=== PATIENT | male | born 1970 | race Caucasian/White ===

== ENCOUNTER 2022-10-13 05:56 | Emergency (ER) | payer OTHER, SELFPAY ==
--- NOTE | 2022-10-13 06:20 | ED_ITS ---
HPI - General Adult General Time Seen by Provider: 06:21 Date Seen: 10/13/22 Chief complaint: Nausea/Vomiting Stated complaint: Nausea Time Seen by Provider: 10/13/22 05:58 Source: patient and RN notes reviewed Mode of arrival: ambulatory Limitations: no limitations History of Present Illness HPI narrative: 52-year-old medically complex patient with history of pancreas islet cell transplant, diabetes, cystic fibrosis hypertension who presents today with mellitus. Abrupt onset of feeling poorly about an hour ago with body aches, headache, nausea vomiting. Chronic nasal congestion. No cough or chest pain, chronic abdominal pain is unchanged from usual. No diarrhea. Patient has not taken any medication for his symptoms. History of recent kidney stones but no flank pain or urinary symptoms today. Related Data Home Medications Medication Instructions Recorded Confirmed acetylcysteine .ROUTE 10/13/22 albuterol sulfate .ROUTE 10/13/22 amlodipine 10 mg tablet 10 mg PO DAILY 10/13/22 10/13/22 azithromycin 250 mg tablet 250 mg PO DAILY 10/13/22 10/13/22 insulin aspart U-100 100 unit/mL 60 unit subcut DAILY 10/13/22 10/13/22 subcutaneous cartridge (Novolog PenFill U-100 Insulin aspart) [id number] PO 10/13/22 lisinopril 40 mg tablet 40 mg PO DAILY 10/13/22 10/13/22 medical cannabis 10/13/22 pregabalin 75 mg capsule (Lyrica) 75 mg PO DAILY 10/13/22 10/13/22 suvorexant 10 mg tablet (Belsomra) 10 mg PO QHS 10/13/22 10/13/22 tadalafil .ROUTE DAILY 10/13/22 trikafta 10/13/22 ursodiol 250 mg tablet 250 mg PO BID 10/13/22 10/13/22 venlafaxine 75 mg tablet 75 mg PO DAILY 10/13/22 10/13/22 Previous Rx's Medication Instructions Recorded levofloxacin 750 mg tablet 750 mg PO DAILY 7 days #7 tabs 10/13/22 ondansetron 4 mg disintegrating 4 mg PO Q6H PRN nausea and 10/13/22 tablet vomiting #20 tabs Allergies Allergy/AdvReac Type Severity Reaction Status Date / Time meropenem Allergy Mild Rash Verified 10/13/22 06:55 vancomycin Allergy Mild Rash Verified 10/13/22 06:55 Review of Systems Status of ROS: Reports: 10 or more systems reviewed and unremarkable except as noted in History and below Exam Narrative: Exam Narrative: General: Well-developed and well-nourished, no acute distress Head: Atraumatic and normocephalic Eyes: Pupils are equal reactive, extraocular motions intact, conjunctiva clear ENT: External nose and ears are normal, posterior pharynx without erythema or exudate Neck: No midline cervical tenderness, full spontaneous range of motion the neck, trachea midline, no adenopathy Heart: Regular rate and rhythm no murmurs or thrills Lungs: Clear to auscultation bilaterally without wheezes or crackles Abdomen: Soft, mild diffuse abdominal tenderness, nondistended with active bowel sounds Musculoskeletal: No tenderness, deformity, or edema Neurologic: Awake, alert, and oriented x3, no gross focal neurologic deficits, cranial nerves intact as tested Psych: Mood and affect are appropriate Skin: No rashes Const: Vital Signs, click to edit/add: Vital Signs - 24 hr 10/13/22 06:41 Temperature 99.0 F Pulse Rate [Right Pulse Oximeter] 89 Respiratory Rate 20 Blood Pressure [Ri ght Upper Arm] 166/110 H Pulse Oximetry 99 Oxygen Delivery Me thod Room Air Course Course Hospital Course: Patient seen and examined, prior records reviewed. Differential diagnosis includes but not limited to influenza, COVID, bowel obstruction, diverticulitis, cholecystitis, pneumonia. Patient presents with nausea, vomiting, headache, body aches, and will as starting 1 hour ago, abrupt onset. No focal findings on exam here, mild diffuse abdominal tenderness which patient says is chronic for him. Lungs are clear and patient has no cough. Recent kidney stone. Labs and chest x-ray ordered. Reevaluation(s) Reevaluation #1: Labs show normal white blood cell count, negative lactate. Urinalysis is negative, influenza and COVID swabs negative. Mild elevation in the AST and ALT of undetermined significance. Chest x-ray demonstrates right lung base opacity suspicious for pneumonia which is consistent with patient's symptoms. He will be started on antibiotics and discharged. 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 Will be given Rocephin in the emergency department. Time: 07:52 Reevaluation #2: On further consideration, given history of cystic fibrosis, Levaquin ordered instead of doxycycline. Patient is early in his course so Pseudomonas is unlikely but still concerned Time: 08:24 Vital Signs Vital signs: Initial Vital Signs Temperature 99.0 F 10/13/22 06:41 Temperature Source Temporal Artery Scan 10/13/22 06:41 Pulse Rate 89 10/13/22 06:41 Respiratory Rate 20 10/13/22 06:41 Blood Pressure 166/110 H 10/13/22 06:41 Blood Pressure Mean 128 10/13/22 06:41 Blood Pressure Position Sitting 10/13/22 06:41 Pulse Oximetry 99 10/13/22 06:41 Oxygen Delivery Method 10/13/22 06:41 Vital Signs Temperature 99.0 F 10/13/22 06:41 Pulse Rate 89 10/13/22 06:41 Respiratory Rate 20 10/13/22 06:41 Blood Pressure 166/110 H 10/13/22 06:41 Pulse Oximetry 99 10/13/22 06:41 Oxygen Delivery Method 10/13/22 06:41 Temperature 99.0 F 10/13/22 06:41 Pulse Rate 89 10/13/22 06:41 Respiratory Rate 20 10/13/22 06:41 Blood Pressure 166/110 H 10/13/22 06:41 Pulse Oximetry 99 10/13/22 06:41 Oxygen Delivery Method 10/13/22 06:41 Medical Decision Making Medical Records Medical records reviewed: Yes I reviewed the patient's medical records Lab Data Lab results reviewed: Yes I reviewed the patient's lab results Labs: Lab Results 10/13/22 10/13/22 10/13/22 Range/Units 06:24 06:24 06:56 WBC 9.30 (4.50-11.00) K/uL RBC 4.18 L (4.30-5.90) m/uL Hgb 13.3 L (13.5-17.5) gm/dL Hct 39.8 (37.0-53.0) % MCV 95 (80-100) fL MCH 32 (26-34) pg MCHC 33 (32-36) gm/dL RDW Coeff of [place] 14.3 (11.5-15.5) % Plt Count 353 (140-440) K/uL Neut % (Auto) 68.0 (42.0-72.0) % Lymph % (Auto) 16.1 L (20-44) % [place] % (Auto) 13.0 H (0.0-11.0) % Eos % (Auto) 1.3 (0.0-7.0) % Baso % (Auto) 1.0 (0.0-3.0) % Neut # (Auto) 6.32 (1.7-7.0) K/uL Lymph # (Auto) 1.50 (0.90-2.90) K/uL [place] # (Auto) 1.20 H (0.00-0.90) K/UL Eos # (Auto) 0.12 (0.00-0.50) K/uL Baso # (Auto) 0.09 (0.00-0.30) K/uL Sodium (135-149) mmol/L Potassium (3.6-5.1) mmol/L Chloride (96-114) mmol/L Carbon Dioxide (20-32) mmol/L BUN (7-30) mg/dL Creatinine (0.5-1.5) mg/dL Estimated Creat Clear Estimated GFR ml/min Glucose (60-115) mg/dL Lactate (0.5-1.9) mmol/L Calcium (8.4-10.6) mg/dL Total Bilirubin (0.1-1.5) mg/dL Direct Bilirubin (0.0-0.5) mg/dL AST (12-35) U/L ALT (4-50) U/L Alkaline Phosphatase (40-150) U/L Total Protein (6.0-8.3) g/dL Albumin (3.3-5.0) g/dL Urine Color Yellow (Yellow) Urine Appearance Clear (Clear) Urine pH 7.0 (5.0-8.5) Ur Specific [place] 1.025 (1.000-1.030) Urine Protein Negative (Negative) Urine Glucose (UA) Negative (Negative) Urine Ketones Negative (Negative) Urine Blood Negative (Negative) Urine Nitrite Negative (Negative) Urine Bilirubin Negative (Negative) Urine Urobilinogen 0.2 (0.2-1.0) Ur Leukocyte Esterase Negative (Negative) Urine RBC 0-2 (0-2) Urine WBC 0-2 (0-5) Ur Squamous Epith Cells Few (None-Few) Urine Bacteria None (None) SARS-CoV-2 (PCR) Negative SARS-CoV-2 (Negative) Influenza Type A (PCR) Negative PCR FLU A (Negative) Influenza Type B (PCR) Negative PCR FLU B (Negative) RSV (PCR) Negative PCR RSV (Negative) 10/13/22 10/13/22 Range/Units 06:56 06:56 WBC (4.50-11.00) K/uL RBC (4.30-5.90) m/uL Hgb (13.5-17.5) gm/dL Hct (37.0-53.0) % MCV (80-100) fL MCH (26-34) pg MCHC (32-36) gm/dL RDW Coeff of [place] (11.5-15.5) % Plt Count (140-440) K/uL Neut % (Auto) (42.0-72.0) % Lymph % (Auto) (20-44) % [place] % (Auto) (0.0-11.0) % Eos % (Auto) (0.0-7.0) % Baso % (Auto) (0.0-3.0) % Neut # (Auto) (1.7-7.0) K/uL Lymph # (Auto) (0.90-2.90) K/uL [place] # (Auto) (0.00-0.90) K/UL Eos # (Auto) (0.00-0.50) K/uL Baso # (Auto) (0.00-0.30) K/uL Sodium 138 (135-149) mmol/L Potassium 3.7 (3.6-5.1) mmol/L Chloride 105 (96-114) mmol/L Carbon Dioxide 26 (20-32) mmol/L BUN 11 (7-30) mg/dL Creatinine 0.6 (0.5-1.5) mg/dL Estimated Creat Clear 114.59 Estimated GFR 115 ml/min Glucose 228 H (60-115) mg/dL Lactate 1.5 (0.5-1.9) mmol/L Calcium 8.5 (8.4-10.6) mg/dL Total Bilirubin 0.5 (0.1-1.5) mg/dL Direct Bilirubin 0.2 (0.0-0.5) mg/dL AST 66 H (12-35) U/L ALT 61 H (4-50) U/L Alkaline Phosphatase 133 (40-150) U/L Total Protein 6.4 (6.0-8.3) g/dL Albumin 4.1 (3.3-5.0) g/dL Urine Color (Yellow) Urine Appearance (Clear) Urine pH (5.0-8.5) Ur Specific [place] (1.000-1.030) Urine Protein (Negative) Urine Glucose (UA) (Negative) Urine Ketones (Negative) Urine Blood (Negative) Urine Nitrite (Negative) Urine Bilirubin (Negative) Urine Urobilinogen (0.2-1.0) Ur Leukocyte Esterase (Negative) Urine RBC (0-2) Urine WBC (0-5) Ur Squamous Epith Cells (None-Few) Urine Bacteria (None) SARS-CoV-2 (PCR) (Negative) Influenza Type A (PCR) (Negative) Influenza Type B (PCR) (Negative) RSV (PCR) (Negative) Discharge Plan Discharge Clinical Impression: S/P pancreatic islet cell transplantation, Cystic fibrosis, RLL pneumonia Patient Disposition: Home, Self-Care Condition: Stable Instructions: Community Acquired Pneumonia (DC) Additional Instructions: Tylenol and ibuprofen as needed for fever. Take antibiotics as prescribed starting tomorrow morning (Levaquin and Ceftin). Stop taking your azithromycin while your taking the Ceftin and Levaquin. Activity Level: No Restrictions Discharge Diet: Regular Prescriptions: New ondansetron 4 mg tablet,disintegrating 4 mg PO Q6H PRN (Reason: nausea and vomiting) Qty: 20 0RF levofloxacin 750 mg tablet 750 mg PO DAILY 7 Days Qty: 7 0RF Rx Instructions: Discontinue prior doxycycline prescription please No Action medical cannabis acetylcysteine [Mucomyst] .ROUTE amlodipine 10 mg tablet 10 mg PO DAILY azithromycin 250 mg tablet 250 mg PO DAILY Rx Instructions: start on day 2 of therapy albuterol sulfate .ROUTE insulin aspart U-100 [Novolog PenFill U-100 Insulin] 100 unit/mL cartridge 60 unit subcut DAILY Rx Instructions: in pump about 60u daily ursodiol 250 mg tablet 250 mg PO BID venlafaxine 75 mg tablet 75 mg PO DAILY trikafta Rx Instructions: 2 in AM, 1 HS Belsomra 10 mg tablet 10 mg PO QHS tadalafil [Cialis] .ROUTE DAILY Rx Instructions: daily prn [id number] [Creon] PO Rx Instructions: 4-5 with meals, 3 with snacks lisinopril 40 mg tablet 40 mg PO DAILY pregabalin [Lyrica] 75 mg capsule 75 mg PO DAILY Stand Alone Forms: [employer] Info Instructions
--- NOTE | 2022-10-13 06:24 | CRLHL7_ITS ---
For Patients: As a result of the Century Cures Act, medical imaging exams and procedure reports are released immediately into your electronic medical record. You may view this report before your referring provider. If you have questions, please contact your health care provider. INDICATION: nausea, vomiting, body aches, cough TECHNIQUE: Chest 1 views. COMPARISON: None. FINDINGS: Cardiovascular and mediastinum: Heart size and vasculature are normal in caliber and appearance. Lungs and pleural spaces: Subtle patchy opacity at the right lung base. No sign of pleural effusion. No pneumothorax. Bones and soft tissues: No significant findings. IMPRESSION: Subtle patchy opacity at the right lung base suspicious for developing pneumonia. Recommend follow-up in 4-6 weeks to ensure resolution. Dictated by Roshan Marquez MD @ 10/13/2022 7:51:33 AM (Electronically Signed)
[2022-10-13] MEDS: ONDANSETRON 2 MG/ML inj 4 MG IVP (06:40)
[2022-10-13 06:41] VITALS: BP 166/110; PULSE 89; RESP 20; TEMP 37.2; O2SAT 99; BMI 26.6
[2022-10-13 07:00] LABS: Appearance Urine Clear (Clear); Bilirubin Urine Negative (Negative); Blood Urine Negative (Negative); Color Urine Yellow (Yellow); Glucose Urine Negative (Negative); Ketones Urine Negative (Negative); Leukocyte Esterase Urine Negative (Negative); Nitrite Urine Negative (Negative); Protein Urine Negative (Negative); Specific Gravity Urine 1.025 (1.000-1.030); Urobilinogen Urine 0.2 (0.2-1.0)
[2022-10-13 07:03] LABS: Lactate* 1.5 mmol/L (0.5-1.9)
[2022-10-13 07:10] LABS: Basophils Absolute Auto 0.09 K/uL (0.00-0.30); Eosinophils Absolute Auto 0.12 K/uL (0.00-0.50); Eosinophils Percent Auto 1.3 % (0.0-7.0); Hematocrit 39.8 % (37.0-53.0); Hemoglobin* 13.3 gm/dL (13.5-17.5); Immature Granulocytes Abs Auto 0.06 K/uL (0.00-0.30); Immature Granulocytes Pct Auto 0.6 %; Lymphocytes Percent Auto 16.1 % (20-44); Mean Corpuscular HGB Conc 33 gm/dL (32-36); Mean Corpuscular Hemoglobin 32 pg (26-34); Mean Corpuscular Volume 95 fL (80-100); Neutrophils Absolute Auto 6.32 K/uL (1.7-7.0); Platelet Count* 353 K/uL (140-440); RDW Coefficient of Variation % 14.3 % (11.5-15.5); Red Blood Count 4.18 m/uL (4.30-5.90)
[2022-10-13 07:13] LABS: RBC Urine 0-2 (0-2); Squamous Epithelial Cell Urine Few (None-Few); WBC Urine 0-2 (0-5)
[2022-10-13 07:23] LABS: Slide Review Reflex No
[2022-10-13 07:30] LABS: Albumin* 4.1 g/dL (3.3-5.0); Chloride* 105 mmol/L (96-114)
[2022-10-13 07:31] LABS: Potassium* 3.7 mmol/L (3.6-5.1); Sodium* 138 mmol/L (135-149)
[2022-10-13 07:33] LABS: Aspartate Amino Transferase* 66 U/L (12-35); Bilirubin Direct* 0.2 mg/dL (0.0-0.5); Bilirubin Total* 0.5 mg/dL (0.1-1.5); Blood Urea Nitrogen* 11 mg/dL (7-30); Carbon Dioxide* 26 mmol/L (20-32); Creatinine* 0.6 mg/dL (0.5-1.5); Est. Creatinine Clearance* 114.59; Estimated Glomerular Filt Rate 115 ml/min; Total Protein* 6.4 g/dL (6.0-8.3)
[2022-10-13 07:34] LABS: Alanine Aminotransferase* 61 U/L (4-50); Alkaline Phosphatase* 133 U/L (40-150); Calcium* 8.5 mg/dL (8.4-10.6); Glucose* 228 mg/dL (60-115)
[2022-10-13 07:43] LABS: PCR FLU A Negative PCR FLU A (Negative); PCR FLU B Negative PCR FLU B (Negative); PCR RSV Negative PCR RSV (Negative)
[2022-10-13 07:50] LABS: SARS PCR* Negative SARS-CoV-2 (Negative)
[2022-10-13] MEDS: levoFLOXacin 750 MG TABLET PO (08:34)
[2022-10-13] MEDS: cefTRIAXone 2 GM in 0.9 % SODIUM CHLORIDE Mini-bag 100 ML IVPB (08:34)
[2022-10-13] MEDS: 0.9 % SODIUM CHLORIDE 1000 ml 1,000 ML IV (08:34)
[2022-10-13 10:00] VITALS: BP 189/110; PULSE 78; RESP 14; O2SAT 97
== END 2022-10-13 10:20 | disposition home or self-care (01) ==
PROVIDERS: Emergency Provider Family Medicine
DX: J18.9 Pneumonia, unspecified organism (principal)
CPT/HCPCS: 36415; 71045; 80048; 80076; 81001; 83605; 85025; 87502; 87634; 87635; 96365; 96375; 99284; 99285; A9270; J0696; J2405; J7030